=== PATIENT | female | born 1995 | race American Indian/Alaskan Native ===

== ENCOUNTER 2021-10-08 12:08 | Outpatient (CLI) | payer MEDICAID ==
[2021-10-08 12:52] VITALS: BP 118/66
[2021-10-08 13:21] LABS: Bacteria,Urine 4+ /HPF (Negative); Mucus,Urine 1+ /HPF
[2021-10-08 13:48] LABS: Bilirubin,Urine 1+ (Negative); Blood,Urine Negative (Negative); Color,Urine Yellow (Yellow); Protein,Urine <15 mg/dL mg/dL (Negative)
[2021-10-08 13:49] LABS: Ictotest,Urine Negative (Negative)
[2021-10-08 14:13] LABS: Hematocrit 28.7 % (30.3-42.9); Hemoglobin 10.2 gm/dl (10.1-14.3); Mean Corpuscular HGB Conc 35 % (30-34); Mean Corpuscular Volume 85 fl (79-97); Platelet Count 230 K/mm3 (140-440); Red Blood Count 3.39 M/mm3 (3.65-5.03); Red Cell Distribution Width 13.7 % (13.2-15.2)
[2021-10-08 14:30] LABS: Alanine Aminotransferase 33 units/L (7-56); Albumin 3.9 g/dL (3.9-5); Amphetamine Screen,Urine Negative; Benzodiazepines Screen,Urine Negative; Blood Urea Nitrogen 4 mg/dL (7-17); Calcium 9.2 mg/dL (8.4-10.2); Cannabinoid Screen,Urine Negative; Cocaine Screen,Urine Negative; Hemolysis Index 4; Methadone Screen,Urine Negative; Opiate Screen,Urine Negative
[2021-10-08] MEDS ORDERED: LACTATED RINGERS 1,000 ML IV ONE (14:30)
[2021-10-08 14:32] LABS: BUN/Creatinine Ratio 8
--- NOTE | 2021-10-08 15:04 | Ultrasound Report ---
ULTRASOUND OBSTETRIC LIMITED INDICATION / CLINICAL INFORMATION: Rule out abruption. - Clinical Gestational Age (GA) in weeks, days: 20, 2 TECHNIQUE: Transabdominal. COMPARISON: None available. FINDINGS: HEART RATE (beats per minute): 159 PRESENTATION: Breech. ADDITIONAL FINDINGS: Anterior, grade 1 placenta without previa or abruption. 2.9 cm fundal fibroid on the right. IMPRESSION: 1. No evidence of abruption. 2. 2.9 cm right fundal fibroid. Signer Name: Werner King MD Signed: 10/08/2021 3:00 PM Workstation Name: [id number]
[2021-10-08] MEDS ORDERED: ACETAMINOPHEN 325 MG TAB ONE (16:00)
[2021-10-08] MEDS ORDERED: ACETAMINOPHEN 325 MG TAB PO PRN (16:07)
[2021-10-08] MEDS ORDERED: LIDOCAINE-MPF (1%) 10 MG/1 ML VIAL 5 ML INFILTRATI ONE ×2 (17:24→17:32)
[2021-10-08] MEDS ORDERED: LACTATED RINGERS 1,000 ML ONE (18:00)
[2021-10-08] MEDS ORDERED: cefTRIAXone/NS 2 GM/100 ML 2 GM/100 ML BAG IV ONE (18:30)
== END 2021-10-08 19:20 | disposition home or self-care (01) ==
LOC: TRG 12:08 → APU 12:10 → TRG 19:20
PROVIDERS: ATTEND Obstetrics & Gynecology
DX: O34.12 Maternal care for benign tumor of corpus uteri, second trimester (principal); D25.9 Leiomyoma of uterus, unspecified; O32.1XX0 Maternal care for breech presentation, not applicable or unspecified; O26.892 Other specified pregnancy related conditions, second trimester; M79.601 Pain in right arm; M79.602 Pain in left arm; M79.604 Pain in right leg; M79.605 Pain in left leg; Z3A.20 20 weeks gestation of pregnancy
CPT/HCPCS: 36415; 76815; 80053; 80307; 81001; 85027; 87086; 96361; 96365; J0696; J7120